=== PATIENT | male | born 1940 | race Caucasian/White ===

== ENCOUNTER 2020-07-31 12:37 | Inpatient (IN) | payer OTHER ==
[2020-07-31] MEDS ORDERED: SODIUM CHLORIDE 0.9% 500 ML INFUS.BAG IV ONE ×2 (13:19→13:21)
[2020-07-31] MEDS ORDERED: VANCOMYCIN 1,000 MG in DEXTROSE 5%-WATER - 250 ML IVPB ONE (13:26)
[2020-07-31 13:37] VITALS: BMI 25.4
[2020-07-31 14:16] LABS: BASO % 0.5 % (0-2.0); EOS % 0.3 % (0-4.5); HEMATOCRIT 26.5 % (35.4-49); HEMOGLOBIN 7.9 GM/dL (11.7-16.9); LYMPH % 8.4 % (8-40); MCH 28.3 pg (25.7-33.7); MCHC 29.8 g/dl (32.0-35.9); MEAN CELL VOLUME 94.8 fl (80-96); MONO % 5.3 % (3.8-10.2); NEUT % 85.5 % (42.8-82.8); PLATELET COUNT 461 K/MM3 (134-434); RBC 2.79 M/mm3 (4.00-5.60); RDW 18.2 % (11.9-15.9)
[2020-07-31 14:25] LABS: INR 1.13 (0.83-1.09); PROTHROMBIN TIME (PATIENT) 13.8 SEC (9.7-13.0)
[2020-07-31 14:28] LABS: ACTIVATED PTT 28.6 SECONDS (25.2-36.5)
[2020-07-31 14:29] LABS: VENOUS BASE EXCESS -3.9 mmol/L (-2-2); VENOUS O2 SATURATION 72.6 % (70-80); VENOUS PCO2 40.2 mmHg (38-52); VENOUS PH 7.346 (7.310-7.410)
[2020-07-31] MEDS ORDERED: VANCOMYCIN 1 GRAM (PRE-DOCKED) 1,000 MG/250 ML BAG IVPB ONE (14:34)
[2020-07-31 14:35] LABS: WHITE BLOOD COUNT 35.4 K/mm3 (4.0-10.0)
[2020-07-31 14:42] LABS: CALCIUM 8.1 mg/dL (8.5-10.1)
[2020-07-31 14:43] LABS: ALBUMIN 1.3 g/dl (3.4-5.0)
[2020-07-31 14:46] LABS: BLOOD UREA NITROGEN 107.2 mg/dL (7-18); POTASSIUM 7.2 mmol/L (3.5-5.1)
[2020-07-31 14:47] LABS: BILIRUBIN,TOTAL 0.3 mg/dL (0.2-1); CREATININE 1.4 mg/dL (0.55-1.3)
[2020-07-31] MEDS ORDERED: PIPERACILLIN/TAZOB 3.375 GM 3.375 GM in DEXTROSE 5%-WATER - 50 ML IVPB ONE (15:29)
[2020-07-31] MEDS ORDERED: SODIUM CHLORIDE 1,000 ML IV STA (15:57)
[2020-07-31 16:02] LABS: OVALOCYTE 1+; PLATELET ESTIMATE NORMAL; ROULEAU 2+
[2020-07-31] MEDS: NOREPINEPHRINE BITARTRATE 16,000 MCG in SODIUM CHLORIDE 484 ML IV SCH (16:35)
[2020-07-31] MEDS ORDERED: PIPERACILLIN/TAZOB 3.375 GM 3.375 GM/50 ML BAG IVPB ONE (17:53)
[2020-07-31 18:41] LABS: EPI CELLS 30 /uL (0-25.1); HYALINE CASTS 12 /uL (0-3.1); URINE APPEARANCE TURBID; URINE BACTERIA 418 /uL (0-1359); URINE BILIRUBIN 1+ (NEGATIVE); URINE COLOR DK YELLOW; URINE GLUCOSE (UA) NEGATIVE (NEGATIVE); URINE KETONE TRACE (NEGATIVE); URINE LEUK ESTERASE TRACE (NEGATIVE); URINE NITRITE NEGATIVE (NEGATIVE); URINE PROTEIN 1+ (NEGATIVE); URINE WBC 20 /uL (0-25.8)
[2020-07-31 18:45] LABS: CHLORIDE 113 mmol/L (98-107); POTASSIUM 5.6 mmol/L (3.5-5.1); SODIUM 146 mmol/L (136-145)
[2020-07-31 18:47] LABS: ALBUMIN 1.1 g/dl (3.4-5.0); ANION GAP 15 MMOL/L (8-16); BLOOD UREA NITROGEN 99.1 mg/dL (7-18); CO2 18 mmol/L (21-32); GLUCOSE,RANDOM 331 mg/dL (74-106)
[2020-07-31 18:50] LABS: CREATININE 1.4 mg/dL (0.55-1.3); SGOT/AST 41 U/L (15-37); SGPT/ALT 25 U/L (13-61)
[2020-07-31 18:52] LABS: BILIRUBIN,TOTAL 0.3 mg/dL (0.2-1); TOT PROT 5.4 g/dl (6.4-8.2)
[2020-07-31 18:53] LABS: ALK PHOS 104 U/L (45-117)
[2020-07-31 18:57] LABS: CALCIUM 6.8 mg/dL (8.5-10.1)
[2020-07-31] MEDS ORDERED: ELECTROLYTE-148 SOLN 1,000 ML IV SCH (19:30)
[2020-07-31 19:49] LABS: URINE RBC 29.6 /uL (0-23.9)
[2020-07-31] MEDS: levETIRAcetam 500 MG/5 ML ORAL SOLUTION (UNIT-DOSE CUPS) GT SCH (22:55)
[2020-07-31] MEDS: CHLORHEXIDINE GLUCONATE 4% CLEANSER FOR DECOLONIZATION TP SCH (22:55)
[2020-07-31] MEDS: MUPIROCIN 2% TOPICAL OINTMENT FOR DECOLONIZATION NS SCH (22:55)
[2020-08-01] MEDS: PIPERACILLIN/TAZOB 3.375 GM 3.375 GM in DEXTROSE 5%-WATER - 50 ML IVPB SCH ×2 (00:10→09:06)
[2020-08-01] MEDS ORDERED: PIPERACILLIN/TAZOBACTAM 3.375 GM VIAL IVPB ONE ×2 (00:30→09:03)
[2020-08-01] MEDS ORDERED: DEXTROSE 5%-WATER - 50 ML IVPB ONE ×2 (00:30→09:04)
[2020-08-01 00:44] LABS: HEMOGLOBIN 8.5 GM/dL (11.7-16.9); MCH 27.8 pg (25.7-33.7); MCHC 29.2 g/dl (32.0-35.9); MEAN CELL VOLUME 95.5 fl (80-96); MEAN PLT VOLUME 8.8 fl (7.5-11.1); PLATELET COUNT 489 K/MM3 (134-434); RBC 3.04 M/mm3 (4.00-5.60); RDW 18.3 % (11.9-15.9)
[2020-08-01 00:50] LABS: WHITE BLOOD COUNT 32.9 K/mm3 (4.0-10.0)
[2020-08-01 01:04] LABS: CALCIUM 7.6 mg/dL (8.5-10.1)
[2020-08-01 01:05] LABS: MAGNESIUM 3.4 mg/dL (1.8-2.4)
[2020-08-01 01:08] LABS: CREATININE 1.4 mg/dL (0.55-1.3); PHOSPHOROUS 4.7 mg/dL (2.5-4.9)
[2020-08-01 01:17] LABS: POTASSIUM 6.2 mmol/L (3.5-5.1)
[2020-08-01] MEDS ORDERED: CALCIUM GLUCONATE 10% - 1,000 MG/10 ML VIAL IVPUSH ONE (01:17)
[2020-08-01] MEDS ORDERED: ALBUTEROL SO4 0.083% IH SOL 2.5 MG/3 ML VIAL.NEB. NEB ONE (01:18)
[2020-08-01] MEDS ORDERED: INSULIN REGULAR HUMAN 100 UNITS/ML *VIAL SQ ONE (01:18)
[2020-08-01] MEDS ORDERED: DEXTROSE 50%-WATER - 25 GM/50 ML VIAL IVPUSH ONE (01:18)
[2020-08-01] MEDS ORDERED: DEXTROSE 50%-WATER 25 GM/50 ML DISP.SYRIN IVPUSH ONE (02:00)
[2020-08-01] MEDS ORDERED: CALCIUM GLUCONATE IN NACL 1 GM/50 ML BAG IVPB ONE (02:00)
[2020-08-01] MEDS ORDERED: DEXTROSE 50%-WATER 25 GM/50 ML DISP.SYRIN ONE (02:00)
[2020-08-01] MEDS ORDERED: VANCOMYCIN/WATER 1,250 MG/250 ML BAG IVPB SCH ×2 (03:00→11:30)
[2020-08-01] MEDS ORDERED: VANCOMYCIN/WATER BAGS 1,250 MG/250 ML BAG IVPB SCH ×2 (03:00→14:00)
[2020-08-01] MEDS ORDERED: NOREPINEPHRINE D5W PREMIX 16,000 MCG/500 ML BAG IVPB ONE (05:53)
[2020-08-01 07:32] LABS: INR 1.16 (0.83-1.09); PROTHROMBIN TIME (PATIENT) 14.2 SEC (9.7-13.0)
[2020-08-01 08:11] LABS: MAGNESIUM 3.3 mg/dL (1.8-2.4)
[2020-08-01 08:15] LABS: PHOSPHOROUS 4.7 mg/dL (2.5-4.9)
[2020-08-01] MEDS ORDERED: KCL 10 MEQ IVPB 10 MEQ/100 ML INFUS.BAG IVPB SCH (08:15)
[2020-08-01] MEDS: NOREPINEPHRINE BITARTRATE 16,000 MCG in SODIUM CHLORIDE 484 ML IV SCH (08:33)
[2020-08-01] MEDS ORDERED: PT OWN MED DRAWER 7, Y5N ONE ×2 (09:05→11:42)
[2020-08-01] MEDS: levETIRAcetam 500 MG/5 ML ORAL SOLUTION (UNIT-DOSE CUPS) GT SCH (09:06)
[2020-08-01] MEDS ORDERED: SODIUM ZIRCONIUM CYCLOSILICATE (LOKELMA) 5 GM PACKET PO SCH (10:00)
[2020-08-01] MEDS: MUPIROCIN 2% TOPICAL OINTMENT FOR DECOLONIZATION NS SCH ×2 (10:00→21:54)
[2020-08-01] MEDS ORDERED: SODIUM CHLORIDE 0.45% 1,000 ML IV SCH (10:30)
[2020-08-01 10:42] LABS: BASO % 0.3 % (0-2.0); EOS % 0.2 % (0-4.5); HEMATOCRIT 19.9 % (35.4-49); LYMPH % 5.6 % (8-40); MCH 28.4 pg (25.7-33.7); MCHC 29.6 g/dl (32.0-35.9); MEAN CELL VOLUME 95.8 fl (80-96); MONO % 3.8 % (3.8-10.2); NEUT % 90.1 % (42.8-82.8); PLATELET COUNT 511 K/MM3 (134-434); RBC 2.08 M/mm3 (4.00-5.60); RDW 18.4 % (11.9-15.9); RETICULOCYTES 1.27 % (0.5-1.5)
[2020-08-01 10:54] LABS: WHITE BLOOD COUNT 31.2 K/mm3 (4.0-10.0)
[2020-08-01 10:55] LABS: HEMOGLOBIN 5.9 GM/dL (11.7-16.9)
[2020-08-01 12:23] LABS: ANISOCYTOSIS 3+; MACROCYTOSIS 0; PLATELET ESTIMATE INCREASED
[2020-08-01] MEDS: MORPHINE SULFATE/0.9% NACL/PF 100 MG/100 ML BAG IVPB SCH (13:18)
[2020-08-01] MEDS: LORazepam 2 MG/ML SDV VIAL IVPUSH PRN (13:21)
[2020-08-01] MEDS ORDERED: PIPERACILLIN/TAZOB 3.375 GM 3.375 GM in DEXTROSE 5%-WATER - 50 ML IVPB SCH (18:00)
[2020-08-01] MEDS: CHLORHEXIDINE GLUCONATE 4% CLEANSER FOR DECOLONIZATION TP SCH (21:54)
[2020-08-02 06:22] VITALS: TEMP 98
[2020-08-02] MEDS: MORPHINE SULFATE/0.9% NACL/PF 100 MG/100 ML BAG IVPB SCH (07:15)
[2020-08-02 12:03] VITALS: BP 39/28
[2020-08-02] MEDS: MUPIROCIN 2% TOPICAL OINTMENT FOR DECOLONIZATION NS SCH (12:04)
[2020-08-02 13:39] VITALS: PULSE 89
[2020-08-02] MEDS: LORazepam 2 MG/ML SDV VIAL IVPUSH PRN (14:49)
== END 2020-08-02 15:28 | disposition expired | DRG 871 ==
LOC: JER 12:37 → JERBED 16:15 → JICU 21:32
PROVIDERS: ADMIT Internal Medicine; ATTEND Internal Medicine
PROC: 5A1945Z Respiratory Ventilation, 24-96 Consecutive Hours (ICD-10-PCS; principal; 2020-07-31)
DX: A41.89 Other specified sepsis (principal); R65.21 Severe sepsis with septic shock; U07.1 COVID-19; L89.024 Pressure ulcer of left elbow, stage 4; L89.014 Pressure ulcer of right elbow, stage 4; L89.154 Pressure ulcer of sacral region, stage 4; L89.513 Pressure ulcer of right ankle, stage 3; G12.21 Amyotrophic lateral sclerosis; E87.2 Acidosis; N17.9 Acute kidney failure, unspecified; G93.1 Anoxic brain damage, not elsewhere classified; J96.10 Chronic respiratory failure, unspecified whether with hypoxia or hypercapnia; Z93.0 Tracheostomy status; I11.0 Hypertensive heart disease with heart failure; I50.9 Heart failure, unspecified; G40.909 Epilepsy, unspecified, not intractable, without status epilepticus; D64.9 Anemia, unspecified; E87.5 Hyperkalemia; L89.896 Pressure-induced deep tissue damage of other site; R13.10 Dysphagia, unspecified; I46.9 Cardiac arrest, cause unspecified
CPT/HCPCS: 36415; 71045-TC-FY; 80048; 80053; 81003; 82550; 82553; 82728; 82803; 83540; 83550; 83605; 83615; 83735; 83930; 84100; 84484; 85025; 85027; 85045; 85379; 85610; 85651; 85730; 86140; 87040; 87086; 87804; 93005; 93010; 94002; 94640; 99285-25; C9803; U0003